=== PATIENT | male | born 1950 | race Hispanic/Latino ===

== ENCOUNTER 2019-07-29 01:43 | Observation (INO) | payer MEDICARE ==
[2019-07-29] MEDS ORDERED: Ondansetron ODT 4 MG TAB ONE (02:28)
[2019-07-29 02:36] LABS: #Eosinphils 0.4 thou/uL (0.0-0.7); #Lymphocytes 2.3 thou/uL (1.20-3.40); #Monocytes 0.7 thou/uL (0.11-0.59); #Neutrophils 2.6 thou/uL (1.40-6.50); %Basophils 0.5 % (0.0-1.0); %Eosinophils 6.2 % (0.0-10.0); %Lymphocytes 38.6 % (21.0-51.0); %Neutrophils 43.8 % (42.0-75.0); Hemoglobin 14.5 g/dL (14.0-18.0); Mean Corpuscular HGB CONC 35.2 g/dL (32.0-36.0); Mean Corpuscular Hemoglobin 29.3 pg (27.0-31.0); Mean Corpuscular Volume 83.2 fL (78.0-98.0); Mean Platelet Volume 6.2 fL (7.4-10.4); Platelet Count 167 thou/uL (130-400); RBC Distribution Width 12.2 % (11.5-14.5); Red Blood Cell (RBC) Count 4.95 mill/uL (4.70-6.10)
[2019-07-29 02:59] LABS: ALT (SGPT) 59 U/L (8-55); AST (SGOT) 40 U/L (5-34); Albumin 4.1 g/dL (3.4-4.8); Alkaline Phosphatase 149 U/L (40-110); Anion Gap 13 mmol/L (10-20); BUN (Urea Nitrogen) 8 mg/dL (8.4-25.7); Bilirubin, Total 0.4 mg/dL (0.2-1.2); Calc. Creatinine Clearance 0 mL/min (70-130); Calcium 8.9 mg/dL (7.8-10.44); Carbon Dioxide 22 mmol/L (23-31); Chloride 105 mmol/L (98-107); Estimated GFR-MDRD 68; Glucose 148 mg/dL (80-115); Potassium 3.5 mmol/L (3.5-5.1); Protein, Total 7.1 g/dL (5.8-8.1); Sodium 136 mmol/L (136-145)
[2019-07-29] MEDS ORDERED: Meclizine HCl 25 MG TAB ONE (03:50)
[2019-07-29 06:51] LABS: Troponin I Less than 0.010 ng/mL (< 0.028)
[2019-07-29] MEDS ORDERED: Ondansetron PF 4 MG/2 ML Vial IVP PRN (09:00)
[2019-07-29] MEDS ORDERED: Acetaminophen 325 MG TAB PO PRN (09:00)
[2019-07-29] MEDS ORDERED: Ondansetron ODT 4 MG TAB SL PRN (09:00)
--- NOTE | 2019-07-29 09:06 | RAD ---
PORTABLE CHEST: DATE: 07/29/2019. PROVIDED CLINICAL HISTORY: Hypertension and headache. FINDINGS: Cardiac and mediastinal silhouette is within normal limits. Lungs appear clear. No pleural fluid or pneumothorax apparent. IMPRESSION: No evidence for an acute cardiopulmonary process. POS: [facility]
[2019-07-29 09:11] LABS: Troponin I Less than 0.010 ng/mL (< 0.028)
--- NOTE | 2019-07-29 09:26 | CT ---
PRELIMINARY REPORT/[facility]/EMERGENCY AFTER HOURS PROCEDURE: PROCEDURE INFORMATION: Exam: CT Head Without Contrast Exam date and time: 07/29/2019 3:48 AM Clinical history: 68 years old, male; Patient HX: 68 yo m presents to ED with C/O dizziness. PT repor ts he began experiencing dizziness around 7 pm tonight, with some associated nausea, vomiting, diapho resis, and headache TECHNIQUE: Imaging protocol: Computed tomography of the head without contrast. COMPARISON: No relevant prior studies available. FINDINGS: Brain: Normal. No hemorrhage. Unremarkable white matter. No mass effect. Ventricles: Normal. No ventriculomegaly. Bones/joints: Unremarkable. No acute fracture. Sinuses: Visualized sinuses are unremarkable. No fluid levels. Mastoid air cells: Visualized mastoid air cells are well aerated. Soft tissues: Unremarkable. IMPRESSION: No acute intracranial abnormality. Thank you for allowing us to participate in the care of your patient. Dictated and Authenticated by: Elver Larry MD 07/29/2019 3:57 AM Central Time ([place] & [place]) FINAL REPORT HEAD CT WITHOUT CONTRAST: Date: 07/29/19 COMPARISON: None. HISTORY: Dizziness. FINDINGS: This report is in agreement with the preliminary report given by Kathy. There is mild mucosal thickeni ng of the right sphenoid sinus and bilateral ethmoid air cells. No displaced calvarial fracture, intr acranial hemorrhage, midline shift, or mass effect. IMPRESSION: No acute findings. POS: [facility]
[2019-07-29 10:25] VITALS: BMI 29.5
[2019-07-29] MEDS ORDERED: HumaLOG 300 UNITS/3 ML VIAL SC PRN (11:51)
[2019-07-29] MEDS ORDERED: Dextrose 5% in Water 1,000 ML IV PRN (11:51)
[2019-07-29] MEDS ORDERED: Dextrose 50% Abboject 50 ML SYRINGE SLOW IVP PRN (11:51)
[2019-07-29] MEDS: Meclizine HCl 25 MG TAB PO SCH ×2 (14:15→21:58)
[2019-07-29] MEDS: Acetaminophen 325 MG TAB PO PRN ×2 (14:15→21:58)
--- NOTE | 2019-07-29 14:47 | HP ---
PRIMARY CARE PHYSICIAN: Tracie Barr MD CHIEF COMPLAINT: Dizziness with nausea, vomiting. HISTORY OF PRESENT ILLNESS: Mr. Maurer is a 68-year-old male, who reported to the emergency room after experiencing some dizziness, headache, nausea, vomiting, diaphoresis, and hypertension, started around 8 p.m. Denies any chest pain or shortness of breath. Has been seen in the emergency room for similar issues, but has never been hospitalized. 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 Reports that he felt very nauseous. Reports vomiting and then he had been taking his blood pressure pretty frequently over the last 12 hours and it was very labile, lowest reading systolic in the 140s, highest systolic in the 180s. He reports that he took his home medication and the blood pressure went down, but then it rebounded and went back up. It is at this point that he wanted to be evaluated in the emergency room. Troponins x3 are negative. CT scan of the brain in the emergency room was negative for any acute findings and was admitted to the stroke unit for further evaluation. REVIEW OF SYSTEMS: Hypertension, diaphoresis, dizziness, nausea, vomiting, and headache. All other systems reviewed and are negative unless mentioned in the HPI. PHYSICAL EXAMINATION: VITAL SIGNS: Blood pressure 122/68, pulse is 61, respirations are 17, temperature is 98.4, and pO2 sats are 97% on room air. GENERAL: The patient is alert and oriented to person, place, and time, is in no apparent distress. HEENT: Head is atraumatic and normocephalic. Eyes, pupils are equally round and reactive to light. Eyelids are normal to inspection. There is no nystagmus present. ENT, mucous membranes are moist. Mouth exam is normal. NECK: Normal range of motion. Trachea is midline. RESPIRATORY: Chest movement is symmetrical. Chest expansion is equal. Breath sounds are clear. CARDIOVASCULAR: Regular rate and rhythm. Heart sounds are normal. ABDOMEN: Bowel sounds are normal. Abdomen is nontender. BACK: Normal range of motion. No tenderness. EXTREMITIES: Upper extremity, normal range of motion. Inspection is normal. Sensation is intact. Radial pulses are equal bilaterally. Lower extremity, normal inspection. Normal range of motion. Pedal pulses are normal. No edema is noted. NEUROLOGIC: The patient is oriented to person, place, and time. Speech is normal. There is no focal motor or sensory deficits. No nystagmus. NIH of zero. Negative test of skew. SKIN: Warm, dry, normal in color. LABORATORY DATA: Glucose 148, AST 40, ALT 49, alkaline phosphatase 149. Troponin x3 has been negative. CODE STATUS: The patient is requesting cardiac only, has no desire to be intubated. This was discussed in length with the patient and family at the bedside. ALLERGIES: NONE. HOME MEDICATIONS: 1. Aspirin 81 mg p.o. daily. 2. Levothyroxine 100 mcg p.o. daily. 3. Lisinopril/hydrochlorothiazide 20/25 mg p.o. daily. 4. Metformin 500 mg p.o. daily. PLAN AND ASSESSMENT: 1. Dizziness with nausea and vomiting. The patient does have some history of vertigo, reports this is much worse. We will obtain an MRI of the brain, echocardiogram, and carotid Dopplers. Also vital signs with orthostatics. Ask OT and PT to evaluate aspirin daily. We will also order some meclizine q.8 hours, schedule to see if this helps his symptoms; if all of this is negative, most likely vertigo. 2. Hypothyroidism. We will check a TSH. Restart home medications. 3. Hypertension. Restart home medications. We will trend. Add p.r.n. medications as needed. 4. Diabetes type 2. We will hold the metformin for now. Add a sliding scale insulin coverage. A.c. and at bedtime Accu-Cheks. Restart metformin before we discharge. 5. Gastrointestinal and deep VT prophylaxis has been started. 6. Hospital course dependent on clinical findings. Job ID: [id number]
--- NOTE | 2019-07-29 16:22 | ULT ---
CAROTID DOPPLER: INDICATIONS: Dizziness. TECHNIQUE: Ultrasound Doppler study is performed on the extracranial carotid arteries. Color Doppler with spectr al analysis and velocity recordings obtained. FINDINGS: Ultrasound images show no significant plaque or intimal thickening. Velocity recordings are within the normal range. Vertebrals show antegrade flow. IMPRESSION: Unremarkable carotid Doppler study. No evidence of stenosis. POS: [facility]
--- NOTE | 2019-07-29 18:30 | MRI ---
MRI BRAIN WITHOUT CONTRAST: INDICATIONS: Dizziness. FINDINGS: The ventricles have normal size and position. No evidence of restricted diffusion. No evidence of acu te infarct, mass or edema. There are a few scattered white matter hyperintensities which are nonspecific and may represent very mild chronic ischemic change. No significant white matter abnormality. No evidence of hemorrhage. Intracranial internal carotid arteries, cerebral arteries and dural venous sinuses are patent. IMPRESSION: Unremarkable MRI brain. POS: [facility]
[2019-07-29] MEDS: Famotidine 20 MG TAB PO SCH (21:58)
[2019-07-30] MEDS ORDERED: Levothyroxine Sodium 100 MCG TAB PO SCH (06:00)
[2019-07-30 06:01] LABS: #Eosinphils 0.3 thou/uL (0.0-0.7); #Lymphocytes 1.8 thou/uL (1.20-3.40); #Monocytes 0.7 thou/uL (0.11-0.59); #Neutrophils 3.6 thou/uL (1.40-6.50); %Basophils 0.7 % (0.0-1.0); %Eosinophils 4.4 % (0.0-10.0); %Lymphocytes 28.6 % (21.0-51.0); %Monocytes 10.2 % (0.0-10.0); %Neutrophils 56.1 % (42.0-75.0); Hemoglobin 15.1 g/dL (14.0-18.0); Mean Corpuscular HGB CONC 34.1 g/dL (32.0-36.0); Mean Corpuscular Hemoglobin 28.6 pg (27.0-31.0); Mean Corpuscular Volume 83.9 fL (78.0-98.0); Mean Platelet Volume 6.5 fL (7.4-10.4); Platelet Count 183 thou/uL (130-400); RBC Distribution Width 12.3 % (11.5-14.5); Red Blood Cell (RBC) Count 5.27 mill/uL (4.70-6.10); White Blood Cell (WBC) Count 6.4 thou/uL (4.8-10.8)
[2019-07-30] MEDS: Meclizine HCl 25 MG TAB PO SCH ×2 (06:04→14:59)
[2019-07-30 06:14] LABS: Anion Gap 12 mmol/L (10-20); BUN (Urea Nitrogen) 17 mg/dL (8.4-25.7); Calc. Creatinine Clearance 58 mL/min (70-130); Calcium 9.2 mg/dL (7.8-10.44); Carbon Dioxide 28 mmol/L (23-31); Cardiac Risk 6.8 (Less than 4.5); Chloride 102 mmol/L (98-107); Cholesterol 190 mg/dl (< 200 Desired); Estimated GFR-MDRD 57; Glucose 108 mg/dL (80-115); HDL Cholesterol 28 mg/dL (>60 Neg Risk); LDL Cholesterol, Calculated 108 mg/dL; Potassium 3.8 mmol/L (3.5-5.1); Sodium 138 mmol/L (136-145); Triglycerides 272 mg/dL (Less than 150)
[2019-07-30] MEDS ORDERED: Aspirin 81 mg Enteric Coated Tablet PO SCH (09:00)
[2019-07-30] MEDS ORDERED: Enoxaparin Sodium 40 MG/0.4 ML SYRINGE SC SCH (09:00)
[2019-07-30] MEDS ORDERED: Lisinopril/Hydrochlorothiazide 20/25 mg Tablet PO SCH (09:00)
[2019-07-30] MEDS ORDERED: Prevnar 13-Val Conj/PF 0.5 ML SYRINGE IM ONE (09:00)
[2019-07-30] MEDS: Famotidine 20 MG TAB PO SCH (09:24)
[2019-07-30 15:37] VITALS: BP 114/68; TEMP 97.9
--- NOTE | 2019-07-31 11:35 | DIS ---
DATE OF ADMISSION: 07/29/2019 DATE OF DISCHARGE: 07/30/2019 ADMITTING DIAGNOSIS: Dizziness, rule out CVA. FINAL DIAGNOSIS: Ruled out for CVA, dizziness improving. HOSPITAL COURSE: The patient was admitted, hospitalized, and obtained CT scan and MRI which were negative. 2D echocardiogram was negative. The patient was started on meclizine 25 mg p.o. q.6 hours p.r.n. and patient's symptoms started improving. As patient has been ruled out acute CVA, it has been concluded to transfer the patient to outpatient care to follow up on discharge with dizziness clinic. CONDITION OF THE PATIENT AT THE TIME OF DISCHARGE: Tolerating diet well, ambulating, afebrile. DISCHARGE INSTRUCTIONS: Discharge the patient to outpatient care, to follow up with dizziness clinic. DISCHARGE MEDICATIONS: As per reconciliation sheet plus meclizine 25 mg one p.o. q.6 hours p.r.n., total 10, no refills. FOLLOWUP CARE: Follow up with dizziness clinic as well as PCP in one week. Job ID: [id number]
== END 2019-07-30 17:11 | disposition home or self-care (01) ==
LOC: ERS 01:43 → ERHOLD 04:59 → 2SE 10:19
PROVIDERS: ADMIT Internal Medicine; ATTEND Internal Medicine
DX: R42 Dizziness and giddiness (principal); R11.2 Nausea with vomiting, unspecified; I10 Essential (primary) hypertension; E03.9 Hypothyroidism, unspecified; E11.9 Type 2 diabetes mellitus without complications; Z79.82 Long term (current) use of aspirin; Z79.84 Long term (current) use of oral hypoglycemic drugs; Z79.899 Other long term (current) drug therapy
CPT/HCPCS: 70450; 70551; 71045; 80048; 80061; 82962 ×2; 84484 ×2; 85025; 90670; 93005; 93306; 93880; 96372; 97112; 97116; 97139 ×3; 99285; G0009; G0378 ×3; 36415; 36416; 80053; 84443; 90471; J1650; J8597; Q0162

== ENCOUNTER 2019-12-31 14:40 | Emergency (ER) | payer MEDICARE ==
--- NOTE | 2019-12-31 15:24 | RAD ---
PORTABLE CHEST 1 VIEW: Date: 12/31/2019 Time: 1519 hours HISTORY: Hypertension, dizziness, chest pain. FINDINGS: Comparison made with exam of 07/29/2019. The heart size is normal. No focal areas of consolidation, pneumothoraces, or pleural effusions are s een. IMPRESSION: No radiographic evidence of acute cardiopulmonary process. POS: [facility]
[2019-12-31 15:25] LABS: #Lymphocytes 1.3 thou/uL (1.20-3.40); #Monocytes 0.4 thou/uL (0.11-0.59); %Basophils 0.6 % (0.0-1.0); %Eosinophils 0.7 % (0.0-10.0); %Lymphocytes 18.8 % (21.0-51.0); %Neutrophils 73.9 % (42.0-75.0); Hemoglobin 15.3 g/dL (14.0-18.0); Mean Corpuscular HGB CONC 35.6 g/dL (32.0-36.0); Mean Corpuscular Hemoglobin 29.5 pg (27.0-31.0); Mean Corpuscular Volume 82.7 fL (78.0-98.0); Mean Platelet Volume 6.4 fL (7.4-10.4); Platelet Count 191 thou/uL (130-400); RBC Distribution Width 12.2 % (11.5-14.5); Red Blood Cell (RBC) Count 5.19 mill/uL (4.70-6.10); White Blood Cell (WBC) Count 6.8 thou/uL (4.8-10.8)
[2019-12-31 15:45] LABS: ALT (SGPT) 54 U/L (8-55); AST (SGOT) 40 U/L (5-34); Albumin 4.2 g/dL (3.4-4.8); Alkaline Phosphatase 125 U/L (40-110); Anion Gap 12 mmol/L (10-20); BUN (Urea Nitrogen) 17 mg/dL (8.4-25.7); Bilirubin, Total 0.6 mg/dL (0.2-1.2); Calc. Creatinine Clearance 0 mL/min (70-130); Calcium 9.3 mg/dL (7.8-10.44); Carbon Dioxide 24 mmol/L (23-31); Chloride 103 mmol/L (98-107); Estimated GFR-MDRD 70; Globulin 3.1 g/dL (2.4-3.5); Glucose 146 mg/dL (80-115); Potassium 3.6 mmol/L (3.5-5.1); Protein, Total 7.3 g/dL (5.8-8.1); Sodium 135 mmol/L (136-145)
--- NOTE | 2020-01-02 11:13 | EKG ---
Test Reason : Blood Pressure : / mmHG Vent. Rate : 064 BPM Atrial Rate : 064 BPM P-R Int : 180 ms QRS Dur : 100 ms QT Int : 408 ms P-R-T Axes : 054 -08 019 degrees QTc Int : 420 ms Normal sinus rhythm Normal ECG Confirmed by PANCHO PRYOR, MONY Juarez ([id number]), magazine editor NICO FREEDMAN ([id number]) on 01/02/2020 11:12:41 AM Referred By: Confirmed By:MONY DELEON MD
== END 2019-12-31 16:21 | disposition home or self-care (01) ==
LOC: ERS 14:40
DX: R07.9 Chest pain, unspecified (principal); R42 Dizziness and giddiness; E11.9 Type 2 diabetes mellitus without complications; I10 Essential (primary) hypertension; E78.5 Hyperlipidemia, unspecified; Z79.84 Long term (current) use of oral hypoglycemic drugs; Z79.82 Long term (current) use of aspirin; Z79.899 Other long term (current) drug therapy
CPT/HCPCS: 36415; 71045; 80053; 84484; 85025; 93005

== ENCOUNTER 2020-12-17 10:44 | Outpatient (CLI) | payer MEDICARE | END 2020-12-17 10:45 | disposition home or self-care (01) | LOC: BICMRI 10:44 | PROVIDERS: ATTEND Psychiatry & Neurology Neurology | DX: M50.20 Other cervical disc displacement, unspecified cervical region (principal); M47.812 Spondylosis without myelopathy or radiculopathy, cervical region | CPT/HCPCS: 72141 ==

== ENCOUNTER 2021-02-23 08:22 | Outpatient (CLI) | payer MEDICARE ==
[2021-02-23 20:26] LABS: SARS-CoV-2 PCR by NAA Not Detected (NotDetected)
== END 2021-02-23 08:23 | disposition home or self-care (01) ==
LOC: LABBT 08:22
PROVIDERS: ATTEND Neurological Surgery
DX: Z01.812 Encounter for preprocedural laboratory examination (principal); M47.812 Spondylosis without myelopathy or radiculopathy, cervical region; Z20.822 Contact with and (suspected) exposure to COVID-19
CPT/HCPCS: U0003; U0005; 87635

== ENCOUNTER 2021-02-26 05:35 | Day surgery (SDC) | payer MEDICARE ==
[2021-02-25 09:28] VITALS: BMI 29.0
[2021-02-26] MEDS ORDERED: Thrombin 5000 UNITS/5 ML VIAL ONE (06:22)
[2021-02-26] MEDS ORDERED: Fentanyl 100 MCG/2 ML VIAL ONE ×2 (06:33→08:28)
[2021-02-26 06:57] LABS: Anion Gap 14 mmol/L (10-20); BUN (Urea Nitrogen) 17 mg/dL (8.4-25.7); Calc. Creatinine Clearance 69 mL/min (70-130); Calcium 9.3 mg/dL (7.8-10.44); Carbon Dioxide 22 mmol/L (23-31); Chloride 107 mmol/L (98-107); Glucose 118 mg/dL (80-115); Potassium 4.3 mmol/L (3.5-5.1); Sodium 139 mmol/L (136-145)
[2021-02-26] MEDS ORDERED: Metoclopramide HCl 10 MG/2 ML VIAL ONE (07:03)
[2021-02-26] MEDS ORDERED: Lidocaine 1% PF 5 ML VIAL ONE (07:03)
[2021-02-26] MEDS ORDERED: PROPOFOL 200 MG/20 ML VIAL ONE (07:03)
[2021-02-26] MEDS ORDERED: Dexamethasone 20 MG/5 ML VIAL ONE (07:03)
[2021-02-26] MEDS ORDERED: Ondansetron PF 4 MG/2 ML Vial ONE (07:03)
[2021-02-26] MEDS ORDERED: Rocuronium Bromide 10 MG/ML (10ML VIAL) ONE (07:03)
[2021-02-26] MEDS ORDERED: SUGAMMADEX SODIUM 200 MG/2 ML VIAL ONE (08:03)
[2021-02-26] MEDS ORDERED: Tamsulosin HCl 0.4 MG CAP ONE (08:37)
[2021-02-26] MEDS ORDERED: HYDROcodone/Acetaminophen 5/325 mg Tablet ONE (10:26)
== END 2021-02-26 11:36 | disposition home or self-care (01) ==
LOC: SDC 05:35
PROVIDERS: ATTEND Neurological Surgery
PROC: 0RG20A0 Fusion of 2 or more Cervical Vertebral Joints with Interbody Fusion Device, Anterior Approach, Anterior Column, Open Approach (ICD-10-PCS; principal; 2021-02-26)
PROC: 0RG1070 Fusion of Cervical Vertebral Joint with Autologous Tissue Substitute, Anterior Approach, Anterior Column, Open Approach (ICD-10-PCS; 2021-02-26)
PROC: 0RT30ZZ Resection of Cervical Vertebral Disc, Open Approach (ICD-10-PCS; 2021-02-26)
DX: M48.02 Spinal stenosis, cervical region (principal); M54.16 Radiculopathy, lumbar region; I10 Essential (primary) hypertension; E03.9 Hypothyroidism, unspecified; E11.9 Type 2 diabetes mellitus without complications; I25.10 Atherosclerotic heart disease of native coronary artery without angina pectoris; Z79.82 Long term (current) use of aspirin; Z79.84 Long term (current) use of oral hypoglycemic drugs; Z79.899 Other long term (current) drug therapy; Z88.8 Allergy status to other drugs, medicaments and biological substances
CPT/HCPCS: 20930; 20936; 22551; 22845; 22853; 76000; 80048; C1713 ×2; C1776 ×2; J0690; J1100; J2405; J2704; J2765; J3010

== ENCOUNTER 2021-09-21 07:40 | Outpatient (CLI) | payer MEDICARE | END 2021-09-21 07:41 | disposition home or self-care (01) | LOC: ULT 07:40 | PROVIDERS: ATTEND Internal Medicine Gastroenterology | DX: K21.9 Gastro-esophageal reflux disease without esophagitis (principal); R63.5 Abnormal weight gain; R14.0 Abdominal distension (gaseous); E11.9 Type 2 diabetes mellitus without complications; R16.0 Hepatomegaly, not elsewhere classified; K76.0 Fatty (change of) liver, not elsewhere classified; N28.1 Cyst of kidney, acquired | CPT/HCPCS: 76700 ==

== ENCOUNTER 2023-09-13 13:14 | Outpatient (CLI) | payer MEDICARE | END 2023-09-13 13:15 | disposition home or self-care (01) | LOC: ULT 13:14 | PROVIDERS: ATTEND Family Medicine | DX: E03.9 Hypothyroidism, unspecified (principal); E03.4 Atrophy of thyroid (acquired) | CPT/HCPCS: 76536 ==